=== PATIENT | female | born 1980 | race Caucasian/White ===

== ENCOUNTER 2020-12-03 05:50 | Inpatient (IN) | payer OTHER, SELFPAY ==
[2020-12-03] MEDS ORDERED: Tranexamic Acid 1,000 MG in Sodium Chloride 0.9% 100 ML IV PRN (06:11)
[2020-12-03] MEDS ORDERED: Lidocaine 1% 50 ML MDV INJECT PRN (06:11)
[2020-12-03] MEDS ORDERED: Nalbuphine 10 MG/1 ML Vial IVPUSH PRN (06:11)
[2020-12-03] MEDS ORDERED: Sodium Chloride 0.9% 10 ML SDV IV PRN (06:11)
[2020-12-03] MEDS ORDERED: Butorphanol 1 MG/ML SDV IVPUSH PRN (06:11)
[2020-12-03] MEDS ORDERED: Carboprost Tromethamine 250 MCG/1 ML Amp IM PRN (06:11)
[2020-12-03] MEDS ORDERED: Misoprostol 200 MCG Tab PO PRN (06:11)
[2020-12-03] MEDS ORDERED: Sodium Chloride 0.9% 10 ML Syringe FLUSH PRN (06:11)
[2020-12-03] MEDS ORDERED: Methylergonovine 0.2 MG/1 ML Amp IM PRN (06:11)
[2020-12-03] MEDS ORDERED: Sodium Chloride 0.9% 2.5 ML Syringe FLUSH PRN (06:11)
[2020-12-03] MEDS ORDERED: Water For Irrigation,Sterile 1,000 ML Container IRR PRN (06:11)
[2020-12-03] MEDS ORDERED: Lactated Ringers 1,000 ML IV SCH (06:15)
[2020-12-03] MEDS ORDERED: Oxytocin/0.9 % Sodium Chloride 30 UNIT/500 ML BAG IV SCH (06:15)
[2020-12-03] MEDS ORDERED: Oxytocin/0.9 % Sodium Chloride 0 UNIT/0 ML BAG ONE ×2 (06:19→06:22)
[2020-12-03] MEDS ORDERED: HYDROmorphone 2 MG/ML Syringe ONE (06:42)
[2020-12-03] MEDS ORDERED: HYDROmorphone 2 MG/ML Syringe IVPUSH ONE (06:45)
[2020-12-03] MEDS ORDERED: Acetaminophen 500 MG Tab PO PRN ×2 (07:28)
[2020-12-03] MEDS ORDERED: Bisacodyl 10 MG Supp RECTAL PRN (07:28)
[2020-12-03] MEDS ORDERED: Docusate Sodium 100 MG Cap PO PRN (07:28)
[2020-12-03] MEDS ORDERED: Witch Hazel Medicated Pads 40/Jar TOP PRN (07:28)
[2020-12-03] MEDS ORDERED: oxyCODONE 5 MG Tab PO PRN (07:28)
[2020-12-03] MEDS ORDERED: Benzocaine/Menthol 20%-0.5% Spray 78 GM Cannister TOP PRN (07:28)
[2020-12-03] MEDS ORDERED: Ibuprofen 400 MG Tab PO PRN (07:28)
[2020-12-03] MEDS ORDERED: Lanolin 100% Cream 7 GM Tube TOP PRN (07:28)
[2020-12-03] MEDS ORDERED: Ibuprofen 800 MG Tab PO PRN (07:28)
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
--- NOTE | 2020-12-03 07:43 | PCM.DEL ---
L & D Note - General Info Date of Service: 12/03/20 Mother's Due Date: 11/30/20 - Delivery Note Labor: Spontaneous Delivery Outcome: Livebirth Infant Delivery Method: Spontaneous Vaginal Delivery-Single Infant Delivery Mode: Spontaneous Presentation: Left Occiput Anterior (VANNESSA) Nuchal Cord: None Anesthesia Type: None Amniotic Fluid Description: Meconium Stained Episiotomy Type: None Laceration: None Placenta: Intact, Spontaneous Cord: 3 Vessels Estimated Blood Loss: 400 Resuscitation Needed: No [place]: Stimulated, Warmed, Metter Used Score 1 min: 9 Score 5 min: 9 Second Stage Interventions: Reports: Pushing Effectively, Pushing Involuntarily, Other (see below) (Hands and knees) Delivery Comments (Free Text/Narrative):: Brandi is a 40 yo at 40+3 weeks gestation (ZARA 11/30/2020) that presents to L&D today in spontaneous labor with subsequent uncomplicated of term, viable NBF. A pos, RNI, GBS neg. Adequately coping with labor with comfort measures at this time, patient in hands and knees position. Unable to obtain epidural analgesia due to rapid progression of labor. Cephalic presentation. head delivered VANNESSA spontaneously, body following shortly after with the next push. NBF passed through maternal legs, held in place to maternal low abdomen, warmed, dried, stimulated by RN with spontaneous cries. Umbilical cord left intact for ~1 min, clamped x 2, cut by FOB. Pitocin bolus commenced, gentle cord traction applied for active third stage management. 0.5 mg hydromorphone given to patient for pain at this time. Placenta birthed ~10 min S/P NBF, intact, Carreon, 3VC. Perineum inspected, intact. Uterus firm @U-2. Small vaginal bleeding noted, no clots. EBL 400 ml. APGARS 9/9. weight 7 lb 11 oz, AGA. - General Info Date of Service: 12/03/20 Admission Dx/Problem (Free Text): Patient Status Order with Admit Dx/Problem 12/03/20 07:28 Patient Status [ADT] Routine Admission Diagnosis/Problem Admission Diagnosis/Problem 12/03/20 07:33 Brandi is a 40 yo at 40+3 weeks gestation (ZARA 11/30/2020) that presents to L&D today with C/O strong uterine contractions since 0200 (am) today. Reports adequate movement. Denies LOF, grady vaginal bleeding at this time. A pos, RNI, GBS neg. EFW via Leopolds 6-7 lbs. Pertinent medical history includes: advanced maternal age. NKDA. Medications: PNV. Patient has no other complaints or concerns at this time. Functional Status: Reports: Pain Controlled, Tolerating Diet - Review of Systems General: Reports: No Symptoms HEENT: Reports: No Symptoms Pulmonary: Reports: No Symptoms Cardiovascular: Reports: No Symptoms Gastrointestinal: Reports: No Symptoms Genitourinary: Reports: No Symptoms Musculoskeletal: Reports: No Symptoms Skin: Reports: No Symptoms Neurological: Reports: No Symptoms Psychiatric: Reports: No Symptoms - Patient Data Vitals - Most Recent: Hemodynamically stable, afebrile. See flowsheet Weight - Most Recent: 184 lb Lab Results Last 24 Hours: Laboratory Results - last 24 hr 12/03/20 12/03/20 12/03/20 Range/Units 05:50 05:50 05:50 WBC 8.65 (4.0-11.0) K/uL RBC 4.14 L (4.30-5.90) M/uL Hgb 13.8 (12.0-16.0) g/dL Hct 40.6 (36.0-46.0) % MCV 98.1 H (80.0-98.0) fL MCH 33.3 H (27.0-32.0) pg MCHC 34.0 (31.0-37.0) g/dL RDW Std Deviation 48.4 (28.0-62.0) fl RDW Coeff of Aimee 14 (11.0-15.0) % Plt Count 257 (150-400) K/uL MPV 9.80 (7.40-12.00) fL Nucleated RBC % 0.0 /100WBC Nucleated RBCs # 0 K/uL SARS-CoV-2 RNA (ELVIA) NEGATIVE (NEGATIVE) Blood Type A POSITIVE Antibody Screen NEGATIVE Med Orders - Current: Current Medications Acetaminophen (Tylenol Extra Strength) 500 mg PO Q4H PRN PRN Reason: Pain Acetaminophen (Tylenol Extra Strength) 1,000 mg PO Q4H PRN PRN Reason: Pain Benzocaine/Menthol (Dermoplast Pain Relief 20%-0.5% [place]) 78 gm TOP ASDIRECTED PRN PRN Reason: Perineal Comfort Measure Bisacodyl (Dulcolax) 10 mg RECTAL ONETIME PRN PRN Reason: Constipation Docusate Sodium (Colace) 100 mg PO BID PRN PRN Reason: Constipation Emollient Ointment (Lansinoh Hpa) 0 gm TOP ASDIRECTED PRN PRN Reason: Sore Nipples Ibuprofen (Motrin) 400 mg PO Q4H PRN PRN Reason: Pain Ibuprofen (Motrin) 800 mg PO Q6H PRN PRN Reason: Pain Oxycodone HCl (Oxycodone) 5 mg PO Q2H PRN PRN Reason: Pain Witch Livia (Tucks) 1 pad TOP ASDIRECTED PRN PRN Reason: comfort care Discontinued Medications Butorphanol Tartrate (Stadol) 1 mg IVPUSH Q1H PRN PRN Reason: Pain Carboprost Tromethamine (Hemabate Ds) 250 mcg IM ASDIRECTED PRN PRN Reason: Post Hemorrhage Hydromorphone HCl (Dilaudid) Confirm Administered Dose 2 mg .ROUTE .ST-MED ONE Stop: 12/03/20 06:43 Hydromorphone HCl (Dilaudid) 0.5 mg IVPUSH ONETIME ONE Stop: 12/03/20 06:46 Last Admin: 12/03/20 06:45 Dose: 0.5 mg Documented by: Oxytocin/Sodium Chloride (Oxytocin 30 Unit/500 Ml-Ns) 30 unit in 500 mls @ 500 mls/hr IV TITRATE RAMO Tranexamic Acid 1,000 mg/ (Sodium Chloride) 110 mls @ 660 mls/hr IV ONETIME PRN PRN Reason: Bleeding Lactated Ringer's (Ringers, Lactated) 1,000 mls @ 150 mls/hr IV ASDIRECTED [facility] Oxytocin/Sodium Chloride (Oxytocin 30 Unit/500 Ml-Ns) Confirm Administered Dose 0 unit in 0 mls @ as directed .ROUTE .ST-MED ONE Stop: 12/03/20 06:20 Oxytocin/Sodium Chloride (Oxytocin 30 Unit/500 Ml-Ns) Confirm Administered Dose 0 unit in 0 mls @ as directed .ROUTE .ST-MED ONE Stop: 12/03/20 06:23 Lidocaine HCl (Xylocaine 1%) 50 ml INJECT ONETIME PRN PRN Reason: Laceration repair Methylergonovine Maleate (Methergine) 0.2 mg IM ASDIRECTED PRN PRN Reason: Post Hemorrhage Misoprostol (Cytotec) 200 mcg PO ONETIME PRN PRN Reason: Post Hemorrhage Nalbuphine HCl (Nubain) 10 mg IVPUSH Q1H PRN PRN Reason: Pain (severe 7-10) Sodium Chloride (Saline Flush) 10 ml FLUSH ASDIRECTED PRN PRN Reason: Keep Vein Open Sodium Chloride (Saline Flush) 2.5 ml FLUSH ASDIRECTED PRN PRN Reason: Keep Vein Open Sodium Chloride (Normal Saline) 10 ml IV ASDIRECTED PRN PRN Reason: IV Use Sterile Water (Sterile Water For Irrigation) 1,000 ml IRR ASDIRECTED PRN PRN Reason: delivery - Exam General: Alert, Oriented, Cooperative, Mild Distress HEENT: Pupils Equal, Pupils Reactive, Mucous Membr. Moist/[place] Neck: Supple Lungs: Clear to Auscultation, Normal Respiratory Effort Cardiovascular: Regular Rate, Regular Rhythm GI/Abdominal Exam: Normal Bowel Sounds, Soft, Non-Tender, No Organomegaly, No Distention (Female) Exam: Normal External Exam, Enlarged Uterus ( uterus, firm U-2), Vaginal Bleeding (Small rubra lochia, no clots) Back Exam: Normal Inspection, Full Range of Motion Extremities: Normal Inspection, Normal Range of Motion, Non-Tender, No Pedal Edema, Normal Capillary Refill Skin: Warm, Dry, Intact Neurological: No New Focal Deficit Psy/Mental Status: Alert, Normal Affect, Normal Mood - Problem List & Annotations (1) (normal spontaneous vaginal delivery) SNOMED Code(s): 79419915, 738471619 Code(s): O80 - ENCOUNTER FOR FULL-TERM UNCOMPLICATED DELIVERY Status: Acute Priority: High Current Visit: Yes (2) Lactating mother SNOMED Code(s): 161591265, 713285640 Code(s): Z39.1 - ENCOUNTER FOR CARE AND EXAMINATION OF LACTATING MOTHER Status: Acute Priority: High Current Visit: Yes - Problem List Review Problem List Initiated/Reviewed/Updated: No - My Orders Last 24 Hours: My Active Orders 12/03/20 Breakfast Regular Diet [DIET] 12/03/20 07:28 Patient Status [ADT] Routine May Shower [RC] ASDIRECTED Up ad Cheri [RC] ASDIRECTED Vital Signs [RC] PER UNIT ROUTINE Acetaminophen [Tylenol Extra Strength] 1,000 mg PO Q4H PRN Acetaminophen [Tylenol Extra Strength] 500 mg PO Q4H PRN Benzocaine/Menthol [Dermoplast Pain Relief 20%-0.5% [place]] 78 gm TOP ASDIRECTED PRN Docusate Sodium [Colace] 100 mg PO BID PRN Ibuprofen [Motrin] 400 mg PO Q4H PRN Ibuprofen [Motrin] 800 mg PO Q6H PRN Lanolin [Lansinoh HPA] See Dose Instructions TOP ASDIRECTED PRN bisacodyL [Dulcolax] 10 mg RECTAL ONETIME PRN oxyCODONE 5 mg PO Q2H PRN witch Livia [Tucks] 1 pad TOP ASDIRECTED PRN Assess Lochia [WOMSER] Per Unit Routine Assess Uterine Involution [WOMSER] Per Unit Routine Ice Therapy [OM.PC] Per Unit Routine Perineal Care [OM.PC] Per Unit Routine Peripheral IV Discontinue [OM.PC] Routine Sitz Bath [OM.PC] Per Unit Routine Resuscitation Status Routine 12/03/20 07:29 Cooling Warming Measures [RC] ASDIRECTED - Plan Plan:: Admit inpatient to unit S/P of term, viable NBF. Regular diet as tolerated. May ambulate with assistance when desired. If patient does not void within 4 hours S/P delivery, notify provider. support may be provided if desired or needed. See new orders. Dr. Fong notified and agreeable with POC.
[2020-12-03] MEDS ORDERED: Measles, Mumps & Rubella Vaccine 0.5 ML SDV SUBCUT ONE (07:53)
--- NOTE | 2020-12-04 08:37 | PCM.DCSUM1 ---
Discharge Summary - Hospital Course Free Text/Narrative:: Brandi is a 40 yo PPD1 S/P uncomplicated to term NBF. A pos, RNI, GBS neg. Patient has no complaints or concerns at this time. Patient is exclusively bottle feeding well, resting comfortably in bed with in bassinet. Patient reports she is eating, voiding, ambulating independently and without difficulty. Patient denies any problems or concerns at this time except mild intermittent uterine cramping relieved with Ibuprofen once. Patient r eports small vaginal bleeding with no clots. Patient verbalizes her readiness to be discharged home today. Patient reports she does not desire an ibuprofen prescription for pain management at this time. Diagnosis: Stroke: No - Discharge Data Discharge Date: 12/04/20 Discharge Disposition: Home, Self-Care 01 Condition: Good - Referral to Home Health Primary Care Physician: PCP None - Discharge Diagnosis/Problem(s) (1) (normal spontaneous vaginal delivery) SNOMED Code(s): 88865687, [id number] ICD Code: O80 - ENCOUNTER FOR FULL-TERM UNCOMPLICATED DELIVERY Status: Acute Priority: High Current Visit: Yes (2) Lactating mother SNOMED Code(s): 365950965, [id number] ICD Code: Z39.1 - ENCOUNTER FOR CARE AND EXAMINATION OF LACTATING MOTHER Status: Acute Priority: High Current Visit: Yes - Patient Instructions Diet: Usual Diet as Tolerated, Regular Diet as Tolerated, Drink 8-10+ Glasses/Day Activity: As Tolerated, No Strenuous Activities, Rest and Relax Today Driving: May Drive Today Showering/Bathing: May Shower Showering/Bathing, Other: May sitz bathe for perineal comfort Notify Provider of: Fever, Increased Pain, Swelling and Redness, Drainage, Nausea and/or Vomiting - Discharge Plan *PRESCRIPTION DRUG MONITORING PROGRAM REVIEWED*: No *COPY OF PRESCRIPTION DRUG MONITORING REPORT IN PATIENT CHRIS: No Tobacco Cessation Medication: Prescription Refused Home Medications: Home Meds Pnv No.95/Ferrous Fum/Folic AC [ Caplet] 1 cap PO BID 11/24/20 [History] Ibuprofen [Motrin] 800 mg PO Q6H PRN tablet 12/04/20 [Rx] Oxygen Therapy Mode: Room Air - Discharge Summary/Plan Comment DC Time >30 min.: Yes - General Info Date of Service: 12/04/20 Admission Dx/Problem (Free Text: Patient Status Order with Admit Dx/Problem 12/03/20 07:28 Patient Status [ADT] Routine Admission Diagnosis/Problem Admission Diagnosis/Problem 12/03/20 07:33 Brandi is a 40 yo at 40+3 weeks gestation (ZARA 11/30/2018) that presents to L&D today with C/O strong uterine contractions since 0200 (am) today. Reports adequate movement. Denies LOF, grady vaginal bleeding at this time. A pos, RNI, GBS neg. EFW via [place] 6-7 lbs. Pertinent medical history includes: advanced maternal age. NKDA. Medications: PNV. Patient has no other complaints or concerns at this time. Functional Status: Reports: Pain Controlled, Tolerating Diet, Ambulating, Urinating - Review of Systems General: Reports: No Symptoms HEENT: Reports: No Symptoms Pulmonary: Reports: No Symptoms Cardiovascular: Reports: No Symptoms Gastrointestinal: Reports: No Symptoms Genitourinary: Reports: No Symptoms Musculoskeletal: Reports: No Symptoms Skin: Reports: No Symptoms Neurological: Reports: No Symptoms Psychiatric: Reports: No Symptoms - Patient Data Vitals - Most Recent: Last Vital Signs Temp 97.9 F 12/04/20 07:35 Pulse 51 L 12/04/20 07:35 Resp 16 12/04/20 07:35 BP 120/77 12/04/20 07:35 Pulse Ox 99 12/04/20 07:35 Weight - Most Recent: 184 lb Med Orders - Current: Current Medications Acetaminophen (Tylenol Extra Strength) 500 mg PO Q4H PRN PRN Reason: Pain Acetaminophen (Tylenol Extra Strength) 1,000 mg PO Q4H PRN PRN Reason: Pain Benzocaine/Menthol (Dermoplast Pain Relief 20%-0.5% [place]) 78 gm TOP ASDIRECTED PRN PRN Reason: Perineal Comfort Measure Bisacodyl (Dulcolax) 10 mg RECTAL ONETIME PRN PRN Reason: Constipation Docusate Sodium (Colace) 100 mg PO BID PRN PRN Reason: Constipation Last Admin: 12/04/20 07:43 Dose: 100 mg Documented by: Emollient Ointment (Lansinoh Hpa) 0 gm TOP ASDIRECTED PRN PRN Reason: Sore Nipples Last Admin: 12/03/20 22:45 Dose: 7 gm Documented by: Ibuprofen (Motrin) 400 mg PO Q4H PRN PRN Reason: Pain Ibuprofen (Motrin) 800 mg PO Q6H PRN PRN Reason: Pain Last Admin: 12/03/20 17:28 Dose: 800 mg Documented by: Oxycodone HCl (Oxycodone) 5 mg PO Q2H PRN PRN Reason: Pain Witch Livia (Tucks) 1 pad TOP ASDIRECTED PRN PRN Reason: comfort care Discontinued Medications Butorphanol Tartrate (Stadol) 1 mg IVPUSH Q1H PRN PRN Reason: Pain Carboprost Tromethamine (Hemabate Ds) 250 mcg IM ASDIRECTED PRN PRN Reason: Post Hemorrhage Hydromorphone HCl (Dilaudid) Confirm Administered Dose 2 mg .ROUTE .STLeetchi-MED ONE Stop: 12/03/20 06:43 Last Admin: 12/03/20 10:49 Dose: Not Given Documented by: Hydromorphone HCl (Dilaudid) 0.5 mg IVPUSH ONETIME ONE Stop: 12/03/20 06:46 Last Admin: 12/03/20 06:45 Dose: 0.5 mg Documented by: Oxytocin/Sodium Chloride (Oxytocin 30 Unit/500 Ml-Ns) 30 unit in 500 mls @ 500 mls/hr IV TITRATE [facility] Last Admin: 12/03/20 06:38 Dose: 500 mls/hr Documented by: Tranexamic Acid 1,000 mg/ (Sodium Chloride) 110 mls @ 660 mls/hr IV ONETIME PRN PRN Reason: Bleeding Lactated Ringer's (Ringers, Lactated) 1,000 mls @ 150 mls/hr IV ASDIRECTED [facility] Last Infusion: 12/03/20 06:30 Dose: 150 mls/hr Documented by: Oxytocin/Sodium Chloride (Oxytocin 30 Unit/500 Ml-Ns) Confirm Administered Dose 0 unit in 0 mls @ as directed .ROUTE .STLeetchi-MED ONE Stop: 12/03/20 06:20 Last Admin: 12/03/20 10:48 Dose: Not Given Documented by: Oxytocin/Sodium Chloride (Oxytocin 30 Unit/500 Ml-Ns) Confirm Administered Dose 0 unit in 0 mls @ as directed .ROUTE .STLeetchi-MED ONE Stop: 12/03/20 06:23 Last Admin: 12/03/20 10:48 Dose: Not Given Documented by: Lidocaine HCl (Xylocaine 1%) 50 ml INJECT ONETIME PRN PRN Reason: Laceration repair Measles/Mumps/Rubella Vaccine Live (M-M-R Ii Vaccine) 0.5 ml SUBCUT .ONCE ONE Stop: 12/03/20 07:54 Methylergonovine Maleate (Methergine) 0.2 mg IM ASDIRECTED PRN PRN Reason: Post Hemorrhage Misoprostol (Cytotec) 200 mcg PO ONETIME PRN PRN Reason: Post Hemorrhage Nalbuphine HCl (Nubain) 10 mg IVPUSH Q1H PRN PRN Reason: Pain (severe 7-10) Sodium Chloride (Saline Flush) 10 ml FLUSH ASDIRECTED PRN PRN Reason: Keep Vein Open Sodium Chloride (Saline Flush) 2.5 ml FLUSH ASDIRECTED PRN PRN Reason: Keep Vein Open Sodium Chloride (Normal Saline) 10 ml IV ASDIRECTED PRN PRN Reason: IV Use Sterile Water (Sterile Water For Irrigation) 1,000 ml IRR ASDIRECTED PRN PRN Reason: delivery - Exam General: Reports: Alert, Oriented, Cooperative, No Acute Distress HEENT: Reports: Pupils Equal, Pupils Reactive, Mucous Membr. Moist/[place] Neck: Reports: Supple Lungs: Reports: Clear to Auscultation, Normal Respiratory Effort Cardiovascular: Reports: Regular Rate, Regular Rhythm GI/Abdominal Exam: Normal Bowel Sounds, Soft, Non-Tender, No Organomegaly, No Distention (Female) Exam: Normal External Exam, Enlarged Uterus ( uterus, firm U-2), Vaginal Bleeding (Small rubra lochia, no clots), Vaginal Lesions (None, perineum intact.) Rectal (Female) Exam: Deferred Back Exam: Reports: Normal Inspection, Full Range of Motion Extremities: Normal Inspection, Normal Range of Motion, Non-Tender, No Pedal Edema, Normal Capillary Refill Skin: Reports: Warm, Dry, Intact Neurological: Reports: No New Focal Deficit Psy/Mental Status: Reports: Alert, Normal Affect, Normal Mood
== END 2020-12-04 12:43 | disposition home or self-care (01) | DRG 807 ==
LOC: MW.OBCHECK 05:50 → MW.OB 05:51 → MW.OBCHECK 06:11 → OBSVTOIN 06:35 → MW.OB 13:40
PROVIDERS: ADMIT Obstetrics & Gynecology; ATTEND Advanced Practice Midwife
PROC: 10E0XZZ Delivery of Products of Conception, External Approach (ICD-10-PCS; principal; 2020-12-03)
PROC: 10907ZC Drainage of Amniotic Fluid, Therapeutic from Products of Conception, Via Natural or Artificial Opening (ICD-10-PCS; 2020-12-03)
DX: O48.0 Post-term pregnancy (principal); Z37.0 Single live birth; Z3A.40 40 weeks gestation of pregnancy; O99.334 Smoking (tobacco) complicating childbirth; F17.210 Nicotine dependence, cigarettes, uncomplicated; O77.0 Labor and delivery complicated by meconium in amniotic fluid; Z20.822 Contact with and (suspected) exposure to COVID-19
CPT/HCPCS: 36415; 59025; 59409; 85027; 86592; 86850; 86900; 86901; A9270-GY; J1170; J2590; J7120; U0002

== ENCOUNTER 2023-12-10 14:03 | Emergency (ER) | payer OTHER ==
[2023-12-10] MEDS ORDERED: Sodium Chloride 0.9% 1,000 ML IV ONE (14:07)
[2023-12-10] MEDS ORDERED: Ondansetron 4 MG/2 ML SDV IVPUSH ONE (14:08)
[2023-12-10 14:28] LABS: BASOPHILS ABSOLUTE AUTO 0.02 K/uL (0.00-0.20); BASOPHILS PERCENT AUTO 0.4 % (0.0-1.0); EOSINOPHILS ABSOLUTE AUTO 0.08 K/uL (0.00-0.45); EOSINOPHILS PERCENT AUTO 1.7 % (0.0-6.0); HEMATOCRIT 34.5 % (37.0-47.0); HEMOGLOBIN 11.6 g/dL (12.0-16.0); IMMATURE GRAN ABSOLUTE AUTO 0.01 K/uL (0.00-0.05); IMMATURE GRAN PERCENT AUTO 0.2 % (0.0-0.4); LYMPHOCYTES ABSOLUTE AUTO 0.72 K/uL (1.00-4.80); LYMPHOCYTES PERCENT AUTO 15.7 % (24.0-44.0); MEAN CORPUSCULAR HEMOGLOBIN 31.1 pg (28.0-32.0); MEAN CORPUSCULAR HGB CONC 33.6 g/dL (32.0-36.0); MEAN CORPUSCULAR VOLUME 92.5 fL (83.0-99.0); MEAN PLATELET VOLUME 8.6 fL (9.4-12.3); MONOCYTES ABSOLUTE AUTO 0.45 K/uL (0.00-0.80); MONOCYTES PERCENT AUTO 9.8 % (0.0-8.0); NEUTROPHILS PERCENT AUTO 72.2 % (41.0-71.0); PLATELET COUNT,PLT 236 K/uL (150-400); RED BLOOD CELL COUNT 3.73 M/uL (4.10-5.30); WHITE BLOOD CELL COUNT,WBC 4.58 K/uL (3.9-11.3)
[2023-12-10 14:49] LABS: A/G RATIO 0.7 (0.9-1.6); BILIRUBIN TOTAL 0.7 mg/dL (0.2-1.0); CALCIUM 7.9 mg/dL (8.5-10.1); CARBON DIOXIDE,CO2 23.5 mmol/L (21.0-32.0); CREATININE 0.7 mg/dL (0.6-1.0); EST CRCL DRUG DOSING (CG) 102.85 mL/min; POTASSIUM,K 2.5 mmol/L (3.5-5.1); PROTEIN TOTAL,TP 7.1 g/dL (6.4-8.2)
[2023-12-10 15:05] LABS: CORONAVIRUS COVID-19 NAA NEGATIVE (NEGATIVE); INFLUENZA A NAA NEGATIVE (NEGATIVE); INFLUENZA B NAA NEGATIVE (NEGATIVE); RESPIRATORY SYNCYTIAL VIR NAA NEGATIVE (NEGATIVE)
[2023-12-10] MEDS ORDERED: Potassium Chloride 100 ML IV SCH (15:15)
[2023-12-10] MEDS ORDERED: Potassium Chloride 20 MEQ Tab.ER PO ONE (15:15)
[2023-12-10] MEDS ORDERED: Lactated Ringers 1,000 ML IV STA (15:16)
[2023-12-10] MEDS: Potassium Chloride 100 ML IV SCH ×4 (16:20→19:58)
[2023-12-10 18:51] LABS: COLOR,URINE YELLOW; GLUCOSE,URINE NEGATIVE (NEGATIVE); KETONES,URINE >=80 mg/dL (NEGATIVE); LEUKOCYTE ESTERASE,URINE NEGATIVE (NEGATIVE); NITRITE,URINE NEGATIVE (NEGATIVE); OCCULT BLOOD,URINE NEGATIVE (NEGATIVE); PH,URINE 6.5 (5.0-8.0); PROTEIN,URINE TRACE mg/dL (NEGATIVE)
[2023-12-10 19:01] LABS: APPEARANCE,URINE HAZY; BILIRUBIN,URINE SMALL (NEGATIVE)
[2023-12-10 19:02] LABS: BACTERIA,URINE 1+ (NEGATIVE); MUCUS,URINE LIGHT (NONE-MOD); RBC,URINE 0-2 (0-2/HPF); SQUAMOUS EPITHELIAL CELLS,UR FEW; WBC,URINE 0-2 (0-5/HPF)
[2023-12-10 20:29] LABS: CALCIUM 7.6 mg/dL (8.5-10.1); CARBON DIOXIDE,CO2 22.6 mmol/L (21.0-32.0); CREATININE 0.6 mg/dL (0.6-1.0); EST CRCL DRUG DOSING (CG) 119.99 mL/min; POTASSIUM,K 3.1 mmol/L (3.5-5.1)
== END 2023-12-10 21:12 | disposition home or self-care (01) ==
LOC: MW.ED 14:03
DX: O98.513 Other viral diseases complicating pregnancy, third trimester (principal); B34.9 Viral infection, unspecified; O99.283 Endocrine, nutritional and metabolic diseases complicating pregnancy, third trimester; E87.6 Hypokalemia; Z91.048 Other nonmedicinal substance allergy status; Z3A.28 28 weeks gestation of pregnancy
CPT/HCPCS: 0241U; 36415; 80048; 80053; 81001; 85025; 93005; 96361; 96365; 96366; 99284; A9270; J3480; J7030; J7120; 93010

== ENCOUNTER 2024-02-20 15:30 | Inpatient (IN) | payer OTHER ==
[2024-02-20] MEDS ORDERED: Oxytocin/0.9 % Sodium Chloride 30 UNIT/500 ML BAG ONE (16:50)
[2024-02-20] MEDS ORDERED: Erythromycin Base 0.5% Ophth Oint 1 GM Tube ONE (17:30)
[2024-02-20] MEDS ORDERED: Tranexamic Acid IN NACL,ISO-OS 1,000 MG in Premix Bag 1 BAG IV PRN (18:01)
[2024-02-20] MEDS ORDERED: Docusate Sodium 100 MG Cap PO PRN (18:01)
[2024-02-20] MEDS ORDERED: Sodium Chloride 0.9% 2.5 ML Syringe FLUSH PRN (18:01)
[2024-02-20] MEDS ORDERED: Sodium Chloride 0.9% 10 ML Syringe FLUSH PRN (18:01)
[2024-02-20] MEDS ORDERED: Benzocaine/Menthol 20%-0.5% Spray 78 GM Cannister TOP PRN (18:01)
[2024-02-20] MEDS ORDERED: Sodium Chloride 0.9% 20 ML SDV IV PRN (18:01)
[2024-02-20] MEDS ORDERED: Lanolin 100% Cream 7 GM Tube TOP PRN (18:01)
[2024-02-20] MEDS ORDERED: Acetaminophen 500 MG Tab PO PRN (18:01)
[2024-02-20] MEDS: Ibuprofen 800 MG Tab PO PRN (20:51)
[2024-02-20] MEDS: Witch Hazel Medicated Pads 40/Jar TOP PRN (20:52)
[2024-02-21 06:13] LABS: HEMATOCRIT 29.3 % (37.0-47.0); HEMOGLOBIN 9.9 g/dL (12.0-16.0); MEAN CORPUSCULAR HEMOGLOBIN 30.2 pg (28.0-32.0); MEAN CORPUSCULAR HGB CONC 33.8 g/dL (32.0-36.0); MEAN CORPUSCULAR VOLUME 89.3 fL (83.0-99.0); MEAN PLATELET VOLUME 8.8 fL (9.4-12.3); PLATELET COUNT,PLT 208 K/uL (150-400); RED BLOOD CELL COUNT 3.28 M/uL (4.10-5.30); WHITE BLOOD CELL COUNT,WBC 9.13 K/uL (3.9-11.3)
== END 2024-02-21 19:03 | disposition home or self-care (01) | DRG 776 ==
LOC: MW.OB 15:30 → OBSVTOIN 15:55 → MW.OB 21:05
PROVIDERS: ADMIT Obstetrics & Gynecology; ATTEND Obstetrics & Gynecology
PROC: 10E0XZZ Delivery of Products of Conception, External Approach (ICD-10-PCS; principal; 2024-02-20)
DX: Z39.0 Encounter for care and examination of mother immediately after delivery (principal); O99.215 Obesity complicating the puerperium
CPT/HCPCS: 36415; 59025; 59409; 59414; 85027; A9270-GY